=== PATIENT | female | born 1975 | race Hispanic/Latino ===

== ENCOUNTER 2020-07-29 07:57 | Day surgery (SDC) | payer OTHER ==
[2020-07-23 13:44] LABS: BASOPHILS % (AUTO) 0.9 % (0.0-5.0); EOSINOPHILS % (AUTO) 0.8 % (0.0-8.0); LYMPHOCYTES % (AUTO) 8.5 % (21.0-51.0); MEAN CORPUSCULAR HEMOGLOBIN 38.2 pg (27.0-33.0); MEAN CORPUSCULAR HGB CONC 35.4 g/dL (32.0-36.0); MONOCYTES % (AUTO) 11.1 % (3.0-13.0); NEUTROPHILS % (AUTO) 78.3 % (40.0-77.0); PLATELET COUNT (AUTO) 126 K/uL (130-400); RED BLOOD CELL COUNT(AUTO) 3.61 MIL/uL (4.00-5.50); RED CELL DISTRIBUTION WIDTH 12.1 % (11.0-15.5); WHITE BLOOD COUNT (AUTO) 7.5 K/uL (4.8-10.8)
[2020-07-23 13:56] LABS: CREATININE 0.6 mg/dL (0.5-1.5); POTASSIUM 3.3 mmol/L (3.5-5.1)
--- NOTE | 2020-07-26 09:45 | NUR ---
LABS ABNORMAL LABS REPORTED AND FAX TO DR. VASQUEZ, MESSAGE LEFT WITH GIAN. AWAITING FOR FURTHER ORDERS IF ANY,
[2020-07-26 15:23] VITALS: BP 131/83
[~2020-07-29] VITALS: Ht 157.5 cm; Wt 78.9 kg
[2020-07-29] VITALS (17 sets, daily range): BP systolic 103–122; BP diastolic 68–84
[~2020-07-29 07:57] MED LIST: CEFAZOLIN SODIUM 1 GM VIAL IVP SCH; DICY20TA11 PO; ESCI10TA54 PO; FERR325T22 PO; FURO40TA5 PO; LACT10SO PO; LORA2TAB80 PO; MIDO10TA PO; OMEP40CA13 PO; POTA10TA11 PO; PROP10TA10 PO; SODIUM CHLORIDE 0.9% 10 ML VIAL IVP PRN; SPIR50TA5 PO; TAMS0.4C32 PO; TRAM50TA4 PO
[2020-07-29] MEDS ORDERED: LACTATED RINGERS 1000ML 1,000 ML IV ONE (09:20)
[2020-07-29] MEDS: CEFAZOLIN SODIUM 1 GM VIAL ONE ×2 (09:39→10:40)
[2020-07-29] MEDS ORDERED: BUPIVACAINE/PF 0.5% 10ML VIAL ONE (09:42)
[2020-07-29] MEDS ORDERED: FENTANYL CITRATE PF 50 MCG/1 ML 2ML VIAL ONE (09:46)
[2020-07-29] MEDS ORDERED: PROPOFOL 10 MG/ML 20ML VIAL IV ONE (09:46)
[2020-07-29] MEDS ORDERED: LIDOCAINE PF 2% 5ML ABBOJECT ONE (09:46)
[2020-07-29] MEDS ORDERED: SUCCINYLCHOLINE 200MG/10ML SYR ONE (09:46)
[2020-07-29] MEDS ORDERED: ROCURONIUM 10MG/1ML SYR 10 MG/ML ML ONE (09:46)
[2020-07-29] MEDS ORDERED: MIDAZOLAM HCL 1 MG/ML 2ML VIAL ONE (09:48)
[2020-07-29] MEDS ORDERED: GLYCOPYRROLATE 1 MG/5 ML SYRINGE ONE (09:49)
[2020-07-29] MEDS ORDERED: NEOSTIGMINE 5MG/5ML SYR IV ONE (09:49)
[2020-07-29] MEDS ORDERED: DEXAMETHASONE SOD PHOSPHATE 10MG/ML 1ML VIAL ONE (10:38)
[2020-07-29] MEDS ORDERED: ONDANSETRON HCL 4 MG/2 ML VIAL ONE (10:38)
[2020-07-29] MEDS ORDERED: MEPERIDINE-PF 25 MG/ML SYG ONE (11:40)
--- NOTE | 2020-07-29 12:35 | NUR ---
PATIENT ARRIVED TO DAY PATIENT VIA STRETCHER BY KUMAR NOGUEIRA. PATIENT [id number], VITAL SIGNS STABLE, DENIES ANY PAIN AT THIS TIME. DRESSING TO ABDOMEN DRY/INTACT, NO BLEEDING NOTED.
--- NOTE | 2020-07-29 12:40 | NUR ---
PATIENT AND PATIENT'S SISTER PROVIDED WITH DISCHARGE INSTRUCTIONS AND TAKEN TO PRIVATE VEHICLE VIA WHEELCHAIR. PATIENT ASSISTED INTO PRIVATE VEHICLE DRIVEN BY FAMILY MEMBER.
== END 2020-07-29 13:10 | disposition home or self-care (01) ==
LOC: DAH 07:57
PROVIDERS: ATTEND Surgery
DX: K80.12 Calculus of gallbladder with acute and chronic cholecystitis without obstruction (principal); Z20.828 Contact with and (suspected) exposure to other viral communicable diseases; K43.2 Incisional hernia without obstruction or gangrene; I10 Essential (primary) hypertension; F41.9 Anxiety disorder, unspecified; G47.30 Sleep apnea, unspecified; K21.9 Gastro-esophageal reflux disease without esophagitis; E66.9 Obesity, unspecified; F32.9 Major depressive disorder, single episode, unspecified; Z87.891 Personal history of nicotine dependence; Z72.89 Other problems related to lifestyle; Z79.899 Other long term (current) drug therapy; Z98.890 Other specified postprocedural states; Z98.891 History of uterine scar from previous surgery; Z68.31 Body mass index [BMI] 31.0-31.9, adult
CPT/HCPCS: 36415; 47562; 49560; 80048; 84703; 85025; A4215; A4221; A4222; A4223 ×2; A4649 ×2; A4657; A4663; A4930; A6260; C1769 ×3; C9803; J0330; J0690; J1100; J2001; J2175; J2250; J2405; J2704; J2710; J3010; J3490 ×2; J7030; J7120 ×2; U0003

== ENCOUNTER 2020-08-06 18:22 | Emergency (ER) | payer OTHER ==
[~2020-08-06 18:22] MED LIST changes: -CEFAZOLIN SODIUM 1 GM VIAL IVP SCH; -DICY20TA11 PO; -SODIUM CHLORIDE 0.9% 10 ML VIAL IVP PRN
[2020-08-06] MEDS ORDERED: ONDANSETRON HCL 4 MG/2 ML VIAL ONE (18:49)
[2020-08-06 18:55] LABS: BASOPHILS % (AUTO) 0.5 % (0.0-5.0); EOSINOPHILS % (AUTO) 2.7 % (0.0-8.0); HEMATOCRIT 39.9 % (36-48); MEAN CORPUSCULAR HEMOGLOBIN 38.8 pg (27.0-33.0); MEAN CORPUSCULAR HGB CONC 36.3 g/dL (32.0-36.0); MEAN CORPUSCULAR VOLUME 106.7 fL (79-99); MONOCYTES % (AUTO) 8.3 % (3.0-13.0); NEUTROPHILS % (AUTO) 81.2 % (40.0-77.0); PLATELET COUNT (AUTO) 140 K/uL (130-400); RED BLOOD CELL COUNT(AUTO) 3.74 MIL/uL (4.00-5.50); RED CELL DISTRIBUTION WIDTH 12.6 % (11.0-15.5); WHITE BLOOD COUNT (AUTO) 7.5 K/uL (4.8-10.8)
[2020-08-06 19:15] LABS: ALBUMIN 4.3 g/dL (3.5-5.0); BILIRUBIN,TOTAL 2.3 mg/dL (0.2-1.0); CREATININE 0.9 mg/dL (0.5-1.5); POTASSIUM 3.7 mmol/L (3.5-5.1); TOTAL PROTEIN, SERUM 9.4 g/dL (6.0-8.3)
[2020-08-06 19:30] LABS: APPEARANCE,URINE Clear (CLEAR); BILIRUBIN,URINE Negative (NEGATIVE); COLOR,URINE Yellow (YELLOW); GLUCOSE, URINE (UA) Negative (NEGATIVE); KETONES,URINE Negative (NEGATIVE); LEUKOCYTE ESTERASE ,URINE Trace (NEGATIVE); NITRATE,URINE Negative (NEGATIVE); OCCULT BLOOD,URINE Trace (NEGATIVE); PH,URINE 7.5 (5.0-8.0); PROTEIN,URINE Negative (NEGATIVE)
[2020-08-06 19:37] LABS: AMPHET/METH SCREEN,URINE NEGATIVE (NEGATIVE); BARBITURATE SCREEN, URINE NEGATIVE (NEGATIVE); BENZODIAZEPINES SCREEN,URINE NEGATIVE (NEGATIVE); CANNABINOID SCREEN,URINE POSITIVE (NEGATIVE); COCAINE SCREEN,URINE NEGATIVE (NEGATIVE); OPIATE SCREEN,URINE NEGATIVE (NEGATIVE); PHENCYCLIDINE SCREEN,URINE NEGATIVE (NEGATIVE)
[2020-08-06] MEDS ORDERED: IOHEXOL-350 75 ML VIAL IV ONE (19:54)
[2020-08-06 19:55] LABS: BACTERIA,URINE Few /HPF (None Seen); RBC,URINE 0-1 /HPF (0-1); SQUAMOUS EPITHELIAL CELL,UR Few /HPF (0-2); WBC,URINE 0-1 /HPF (0-1)
[2020-08-06] MEDS ORDERED: MORPHINE SULFATE 2 MG/ML 1ML SYG ONE (20:59)
== END 2020-08-06 21:13 | disposition home or self-care (01) ==
LOC: EDH 18:22
DX: R10.12 Left upper quadrant pain (principal); F10.10 Alcohol abuse, uncomplicated; R11.0 Nausea; F19.10 Other psychoactive substance abuse, uncomplicated; I10 Essential (primary) hypertension; E78.5 Hyperlipidemia, unspecified; Z90.49 Acquired absence of other specified parts of digestive tract
CPT/HCPCS: 36415; 74177; 80053; 80305; 81001; 83690; 85025; 96374; 96375; 99285; J2405; Q9967

== ENCOUNTER 2020-08-18 22:22 | Emergency (ER) | payer OTHER ==
[2020-08-18 22:38] LABS: EOSINOPHILS % (AUTO) 0.6 % (0.0-8.0); HEMATOCRIT 38.4 % (36-48); LYMPHOCYTES % (AUTO) 15.4 % (21.0-51.0); MEAN CORPUSCULAR HEMOGLOBIN 38.7 pg (27.0-33.0); MEAN CORPUSCULAR HGB CONC 35.4 g/dL (32.0-36.0); MEAN CORPUSCULAR VOLUME 109.4 fL (79-99); MONOCYTES % (AUTO) 9.2 % (3.0-13.0); NEUTROPHILS % (AUTO) 73.5 % (40.0-77.0); PLATELET COUNT (AUTO) 168 K/uL (130-400); RED BLOOD CELL COUNT(AUTO) 3.51 MIL/uL (4.00-5.50); RED CELL DISTRIBUTION WIDTH 12.3 % (11.0-15.5); WHITE BLOOD COUNT (AUTO) 8.8 K/uL (4.8-10.8)
[2020-08-18 22:52] LABS: INR 1.14 (0.85-1.15); PROTHROMBIN TIME 12.1 SEC (9.6-11.6)
[2020-08-18 22:53] LABS: PARTIAL THROMBOPLASTIN TIME 30.5 SEC (26.3-35.5)
[2020-08-18 22:55] LABS: ALBUMIN 3.9 g/dL (3.5-5.0); BILIRUBIN,TOTAL 0.8 mg/dL (0.2-1.0); CREATININE 0.6 mg/dL (0.5-1.5); POTASSIUM 3.7 mmol/L (3.5-5.1); TOTAL PROTEIN, SERUM 8.7 g/dL (6.0-8.3)
[2020-08-18] MEDS ORDERED: METOCLOPRAMIDE 10 MG/2 ML VIAL ONE (23:02)
[2020-08-18] MEDS ORDERED: PANTOPRAZOLE 40 MG/VIAL ONE (23:03)
[2020-08-18] MEDS ORDERED: FAMOTIDINE/PF 20 MG/2 ML VIAL IV ONE (23:03)
[2020-08-18] MEDS ORDERED: ONDANSETRON HCL 4 MG/2 ML VIAL ONE (23:03)
== END 2020-08-19 00:23 | disposition home or self-care (01) ==
LOC: EDH 22:22
DX: K29.00 Acute gastritis without bleeding (principal); F10.129 Alcohol abuse with intoxication, unspecified; I10 Essential (primary) hypertension; E78.5 Hyperlipidemia, unspecified; Z90.49 Acquired absence of other specified parts of digestive tract
CPT/HCPCS: 36415; 71045; 80053; 82550; 83690; 84484; 85025; 85610; 85730; 93005; 96361; 96374; 96375; 99285; C9113; J2405; J2765; J3490

== ENCOUNTER 2020-08-21 11:12 | Emergency (ER) | payer SELFPAY ==
[~2020-08-21 11:12] MED LIST changes: +ESCI-8 PO; -ESCI10TA54 PO; -LACT10SO PO; +LACT10SO5 PO; -OMEP40CA13 PO; +OMEP40CA21 PO; +POTA-183 PO; -POTA10TA11 PO
[2020-08-21 11:29] LABS: BASOPHILS % (AUTO) 0.7 % (0.0-5.0); EOSINOPHILS % (AUTO) 0.5 % (0.0-8.0); HEMATOCRIT 40.4 % (36-48); LYMPHOCYTES % (AUTO) 6.2 % (21.0-51.0); MEAN CORPUSCULAR HEMOGLOBIN 38.6 pg (27.0-33.0); MEAN CORPUSCULAR HGB CONC 34.7 g/dL (32.0-36.0); MEAN CORPUSCULAR VOLUME 111.3 fL (79-99); MONOCYTES % (AUTO) 7.1 % (3.0-13.0); NEUTROPHILS % (AUTO) 85.1 % (40.0-77.0); PLATELET COUNT (AUTO) 163 K/uL (130-400); RED BLOOD CELL COUNT(AUTO) 3.63 MIL/uL (4.00-5.50); RED CELL DISTRIBUTION WIDTH 12.3 % (11.0-15.5); WHITE BLOOD COUNT (AUTO) 9.7 K/uL (4.8-10.8)
[2020-08-21 11:43] LABS: CREATININE 0.6 mg/dL (0.5-1.5)
[2020-08-21 11:47] LABS: ALBUMIN 3.9 g/dL (3.5-5.0); BILIRUBIN,TOTAL 2.6 mg/dL (0.2-1.0); TOTAL PROTEIN, SERUM 8.7 g/dL (6.0-8.3)
[2020-08-21] MEDS ORDERED: MORPHINE 4 MG SYG ONE (12:46)
[2020-08-21] MEDS ORDERED: ONDANSETRON 4MG INJ ONE (12:46)
[2020-08-21] MEDS ORDERED: ASPIRIN 325 MG TABLET ONE (12:46)
[2020-08-21 12:56] LABS: INR 1.17 (0.85-1.15); PROTHROMBIN TIME 12.3 SEC (9.6-11.6)
[2020-08-21 12:58] LABS: PARTIAL THROMBOPLASTIN TIME 28.9 SEC (26.3-35.5)
[2020-08-21 13:00] LABS: CREATINE KINASE, TOTAL 33 U/L (21-232); LIPASE 114 U/L (114-286)
[2020-08-21 13:06] LABS: APPEARANCE,URINE Clear (CLEAR); BILIRUBIN,URINE Negative (NEGATIVE); COLOR,URINE Yellow (YELLOW); GLUCOSE, URINE (UA) Negative (NEGATIVE); KETONES,URINE Trace mg/dL (NEGATIVE); LEUKOCYTE ESTERASE ,URINE Negative (NEGATIVE); NITRATE,URINE Negative (NEGATIVE); OCCULT BLOOD,URINE Negative (NEGATIVE); PH,URINE 7.5 (5.0-8.0); PROTEIN,URINE Negative (NEGATIVE); UROBILINOGEN,URINE 0.2 mg/dL (0.2-1.0)
[2020-08-21 13:07] LABS: HCG,QUAL RESULT NEGATIVE (NEGATIVE)
[2020-08-21 13:25] LABS: RBC,URINE 0-1 /HPF (0-1)
[2020-08-21 13:26] LABS: BACTERIA,URINE None Seen /HPF (None Seen); MUCUS,URINE None Seen LPF (None Seen); SQUAMOUS EPITHELIAL CELL,UR Few /HPF (0-2); WBC,URINE 0-1 /HPF (0-1)
[2020-08-21] MEDS ORDERED: IOHEXOL-350 50ML VIAL IV ONE (13:39)
[2020-08-21] MEDS ORDERED: IOHEXOL 350 MG/ML 100ML INFUS..BTL IV ONE (13:39)
[2020-08-21] MEDS ORDERED: KETOROLAC 30MG VIAL (30MG/ML) ONE (16:08)
[2020-08-21] MEDS ORDERED: MORPHINE 2 MG SYG ONE (16:09)
[2020-12-05] MEDS ORDERED: PROP10TA10 PO (15:53)
[2020-12-05] MEDS ORDERED: LACT10SO62 PO (15:53)
[2020-12-05] MEDS ORDERED: SERT-439 PO (15:53)
[2020-12-05] MEDS ORDERED: ONDA4TAB10 PO (15:53)
== END 2020-08-21 17:32 | disposition home or self-care (01) ==
LOC: EDH 11:12
DX: R07.89 Other chest pain (principal); R11.2 Nausea with vomiting, unspecified; R05 Cough; R06.00 Dyspnea, unspecified; F10.10 Alcohol abuse, uncomplicated; E78.5 Hyperlipidemia, unspecified; I10 Essential (primary) hypertension; Z90.49 Acquired absence of other specified parts of digestive tract
CPT/HCPCS: 36415; 71045; 71275; 74177; 80053; 81001; 81025; 82550; 83690; 83880; 84484 ×2; 85025; 85378; 85610; 85730; 93005; 96374; 96375; 96376; 99285; J1885; J2270; J2405; Q9967 ×2

== ENCOUNTER 2020-12-06 11:19 | Day surgery (SDC) | payer MEDICAID ==
[2020-11-29 09:16] LABS: BASOPHILS % (AUTO) 1.1 % (0.0-5.0); EOSINOPHILS % (AUTO) 1.8 % (0.0-8.0); HEMATOCRIT 37.1 % (36-48); LYMPHOCYTES % (AUTO) 20.6 % (21.0-51.0); MEAN CORPUSCULAR HEMOGLOBIN 36.6 pg (27.0-33.0); MEAN CORPUSCULAR VOLUME 107.8 fL (79-99); MONOCYTES % (AUTO) 12.5 % (3.0-13.0); NEUTROPHILS % (AUTO) 63.8 % (40.0-77.0); PLATELET COUNT (AUTO) 133 K/uL (130-400); RED BLOOD CELL COUNT(AUTO) 3.44 MIL/uL (4.00-5.50); RED CELL DISTRIBUTION WIDTH 12.9 % (11.0-15.5); WHITE BLOOD COUNT (AUTO) 4.6 K/uL (4.8-10.8)
[2020-11-29 09:24] LABS: CREATININE 0.6 mg/dL (0.5-1.5)
[2020-11-29 09:27] LABS: INR 1.12 (0.85-1.15); PROTHROMBIN TIME 12.1 SEC (9.6-11.6)
[2020-11-29 09:28] LABS: PARTIAL THROMBOPLASTIN TIME 26.8 SEC (26.3-35.5)
[2020-12-05 15:23] VITALS: BP 112/83
[2020-12-06] VITALS (18 sets, daily range): BP systolic 112–137; BP diastolic 65–92
[~2020-12-06] VITALS: Ht 157.5 cm; Wt 78.4 kg
[~2020-12-06 11:19] MED LIST changes: +CEFAZOLIN SODIUM 1 GM VIAL IVP ONE; +CEFAZOLIN SODIUM 1 GM VIAL ONE; -ESCI-8 PO; -LACT10SO5 PO; +LACT10SO62 PO; -LORA2TAB80 PO; +OMEP40CA13 PO; -OMEP40CA21 PO; +ONDA4TAB10 PO; -POTA-183 PO; +POTA10TA11 PO; +SERT-439 PO; -TAMS0.4C32 PO; -TRAM50TA4 PO
[2020-12-06] MEDS: SODIUM CHLORIDE 0.9% 1000ML 1,000 ML IV SCH ×2 (12:01→22:30)
[2020-12-06] MEDS ORDERED: LIDOCAINE PF 2% 5ML ABBOJECT ONE (12:02)
[2020-12-06] MEDS ORDERED: SUCCINYLCHOLINE 200MG/10ML SYR ONE (12:02)
[2020-12-06] MEDS ORDERED: ROCURONIUM 10MG/1ML SYR 10 MG/ML ML ONE (12:03)
[2020-12-06] MEDS ORDERED: PROPOFOL 10 MG/ML 20ML VIAL IV ONE (12:03)
[2020-12-06] MEDS ORDERED: FENTANYL CITRATE PF 50 MCG/1 ML 2ML VIAL ONE (12:03)
[2020-12-06] MEDS ORDERED: BUPIVACAINE/PF 0.5% 30ML VIAL ONE (12:09)
[2020-12-06] MEDS ORDERED: GLYCOPYRROLATE 1 MG/5 ML SYRINGE ONE (12:38)
[2020-12-06] MEDS ORDERED: NEOSTIGMINE 5MG/5ML SYR IV ONE (13:37)
[2020-12-06] MEDS ORDERED: ONDANSETRON HCL 4 MG/2 ML VIAL ONE (13:41)
[2020-12-06] MEDS ORDERED: MEPERIDINE-PF 25 MG/ML SYG ONE ×3 (13:41→14:20)
[2020-12-06] MEDS ORDERED: KETOROLAC TROMETHAMINE 30MG/ML ONE ×2 (13:42→13:43)
[2020-12-06] MEDS ORDERED: TRAMADOL HCL 50 MG TABLET ONE (15:18)
== END 2020-12-06 16:00 | disposition home or self-care (01) ==
LOC: DAH 11:19
PROVIDERS: ATTEND Surgery
DX: K43.2 Incisional hernia without obstruction or gangrene (principal); I10 Essential (primary) hypertension; F17.210 Nicotine dependence, cigarettes, uncomplicated; F41.9 Anxiety disorder, unspecified; Z20.828 Contact with and (suspected) exposure to other viral communicable diseases; Z79.01 Long term (current) use of anticoagulants; Z79.899 Other long term (current) drug therapy
CPT/HCPCS: 36415; 49560; 49568; 80048; 85025; 85610; 85730; A4215; A4221; A4222; A4223; A4344; A4452 ×2; A4649; A4663; A6260; A6402; C1768; C9803; J0330; J0690; J1885; J2001; J2175 ×3; J2405; J2704; J2710; J3010; J3490 ×2; J7030; U0003

== ENCOUNTER 2020-12-12 12:06 | Emergency (ER) | payer MEDICAID, OTHER ==
[~2020-12-12 12:06] MED LIST changes: -CEFAZOLIN SODIUM 1 GM VIAL IVP ONE; -CEFAZOLIN SODIUM 1 GM VIAL ONE
[2020-12-12 13:11] LABS: BASOPHILS % (AUTO) 0.8 % (0.0-5.0); EOSINOPHILS % (AUTO) 2.7 % (0.0-8.0); LYMPHOCYTES % (AUTO) 9.1 % (21.0-51.0); MEAN CORPUSCULAR HEMOGLOBIN 36.8 pg (27.0-33.0); MEAN CORPUSCULAR HGB CONC 33.3 g/dL (32.0-36.0); MEAN CORPUSCULAR VOLUME 110.4 fL (79-99); PLATELET COUNT (AUTO) 173 K/uL (130-400); RED BLOOD CELL COUNT(AUTO) 3.26 MIL/uL (4.00-5.50); WHITE BLOOD COUNT (AUTO) 7.2 K/uL (4.8-10.8)
[2020-12-12 13:25] LABS: CREATININE 0.7 mg/dL (0.5-1.5); POTASSIUM 3.8 mmol/L (3.5-5.1)
[2020-12-12 13:30] LABS: ALBUMIN 3.6 g/dL (3.5-5.0); BILIRUBIN,TOTAL 0.8 mg/dL (0.2-1.0); CRP QUANTITATIVE 29.9 mg/L (0.00-9.0); TOTAL PROTEIN, SERUM 8.4 g/dL (6.0-8.3)
== END 2020-12-12 15:18 | disposition home or self-care (01) ==
LOC: EDH 12:06
DX: R05 Cough (principal); Z48.89 Encounter for other specified surgical aftercare; I10 Essential (primary) hypertension; E78.5 Hyperlipidemia, unspecified; Z90.49 Acquired absence of other specified parts of digestive tract; Z72.0 Tobacco use
CPT/HCPCS: 36415; 80053; 83690; 85025; 86140

== ENCOUNTER 2023-10-21 23:21 | Emergency (ER) | payer OTHER ==
[~2023-10-21 23:21] MED LIST changes: -LACT10SO62 PO; +LACT10SO95 PO; -OMEP40CA13 PO; +OMEP40CA21 PO; +POTA-183 PO; -POTA10TA11 PO
[2023-10-21 23:35] VITALS: BP 123/78; PULSE 77; RESP 16
[2023-10-22] MEDS ORDERED: METOCLOPRAMIDE 10 MG/2 ML VIAL IVP ONE (00:30)
[2023-10-22] MEDS ORDERED: FAMOTIDINE 20MG VIAL IV ONE (00:30)
[2023-10-22] MEDS ORDERED: M.V.I. IV [ADULT] 10 ML, FOLIC ACID 1 MG, THIAMINE HCL 100 MG in 0.9%NACL 1000ML 1,000 ML IV SCH (09:00)
== END 2023-10-22 00:35 | disposition left against medical advice (07) ==
LOC: EDH 23:21
DX: M79.10 Myalgia, unspecified site (principal); F10.129 Alcohol abuse with intoxication, unspecified; I10 Essential (primary) hypertension; Z79.899 Other long term (current) drug therapy
CPT/HCPCS: J3411; J3490; J7030